=== PATIENT | female | born 1955 | race Caucasian/White ===

== ENCOUNTER 2017-12-16 03:35 | Emergency (ER) | payer OTHER ==
[~2017-12-16] VITALS: Ht 157.5 cm; Wt 81.2 kg
[~2017-12-16 03:35] MED LIST: BACTRIM DS TAB1 EACH PO; BENICAR; BENICAR20 MG PO; KEFLEX500 MG PO; MEDROLDOSEPACK PO; NOHOMEMEDICATIONS; NORCO 5-325 TA1 EACH PO; PRILOSEC 20 MG20 MG PO; PROAIR HFA8.5 GM INH; PROMETHAZINE D480 ML PO; TESSALON PERLE100 MG PO; VICODIN ES 7.51 EACH PO; VITAMIN D1000 UNI1 PO; ZANAFLEX4 MG PO; ZPAK PO
[2017-12-16] MEDS ORDERED: MEDROLDOSEPACK PO (04:25)
[2017-12-16] MEDS ORDERED: FLEXERIL PO (04:25)
[2017-12-16] MEDS ORDERED: HYDROCODON-ACE1 EAC7 PO (04:25)
[2017-12-16 04:51] VITALS: BP 140/60
== END 2017-12-16 04:51 | disposition home or self-care (01) ==
LOC: M.ERS 03:35
DX: M54.5 Low back pain (principal); F17.210 Nicotine dependence, cigarettes, uncomplicated; Z88.0 Allergy status to penicillin; Z96.641 Presence of right artificial hip joint; Z96.651 Presence of right artificial knee joint